=== PATIENT | female | born 1965 | race African-American/Black ===

== ENCOUNTER 2020-08-06 21:16 | Emergency (ER) | payer OTHER ==
[~2020-08-06] VITALS: Ht 170.2 cm; Wt 88.5 kg
[2020-08-06 21:48] VITALS: BP 111/56
--- NOTE | 2020-08-06 21:50 | NUR ---
w/c assist to bed 04.
--- NOTE | 2020-08-06 21:57 | NUR ---
54 y/o female c/o periorbital edema x 2 days. Bug bite on L eye and bilat legs. c/o itchyness. pt states 8/10 generalized pain. no redness or swelling noted. pmhx: CVA x 4, HTN, DM, Rt calf amputation allx: morphine
--- NOTE | 2020-08-06 22:46 | NUR ---
ERMD AT BEDSIDE EVALUATING PT
--- NOTE | 2020-08-06 23:15 | NUR ---
pt refused bendryl 25 mg. ermd notified.
[2020-08-06 23:25] VITALS: BP 111/56
--- NOTE | 2020-08-06 23:25 | NUR ---
Patient discharged with v/s stable. Written and verbal after care instructions given and explained. Patient alert, oriented and verbalized understanding of instructions. Wheel Chair Assisted with to lobby. All questions addressed prior to discharge. ID band removed. Patient advised to follow up with PMD. Rx of Benadryl given. Patient educated on indication of medication including possible reaction and side effects. Opportunity to ask questions provided and answered.
== END 2020-08-06 23:25 | disposition home or self-care (01) ==
LOC: MED 21:16
DX: S40.861A Insect bite (nonvenomous) of right upper arm, initial encounter (principal); E11.9 Type 2 diabetes mellitus without complications; I10 Essential (primary) hypertension; I63.9 Cerebral infarction, unspecified; Z88.6 Allergy status to analgesic agent; W57.XXXA Bitten or stung by nonvenomous insect and other nonvenomous arthropods, initial encounter; Y93.89 Activity, other specified; Y92.89 Other specified places as the place of occurrence of the external cause; Y99.8 Other external cause status
CPT/HCPCS: 99282

== ENCOUNTER 2020-12-09 22:02 | Emergency (ER) | payer OTHER ==
[~2020-12-09] VITALS: Ht 165.1 cm; Wt 90.7 kg
[2020-12-09 22:34] VITALS: BP 109/68
--- NOTE | 2020-12-09 22:38 | NUR ---
TO LOBBY A/W BED VIA AMBULATORY Addendum: 12/09/20 at 2246 by [facility] VIA WHEELCHAIR
[2020-12-09 23:15] LABS: APPEARANCE,URINE CLEAR (CLEAR); BILIRUBIN,URINE NEGATIVE (NEGATIVE); BLOOD, URINE TRACE-I (NEGATIVE); COLOR,URINE YELLOW (YELLOW); LEUKOCYTE ESTERASE ,URINE NEGATIVE (NEGATIVE); NITRITE, URINE NEGATIVE (NEGATIVE); UGLUCOSE 3+ (NEGATIVE)
[2020-12-09 23:38] LABS: RBC,URINE 0-5 /HPF (0-5); WBC,URINE 0 /HPF (0-5)
== END 2020-12-09 23:19 | disposition left against medical advice (07) ==
LOC: MED 22:02
DX: R10.30 Lower abdominal pain, unspecified (principal); Z53.21 Procedure and treatment not carried out due to patient leaving prior to being seen by health care provider
CPT/HCPCS: 81001; 81025; 99281

== ENCOUNTER 2023-10-23 21:20 | Emergency (ER) | payer OTHER ==
[~2023-10-23] VITALS: Ht 165.1 cm; Wt 68.0 kg
[2023-10-23 21:37] VITALS: BP 123/73; PULSE 92; RESP 15; TEMP 97.4; O2SAT 99
== END 2023-10-23 23:10 | disposition left against medical advice (07) ==
LOC: MED 21:20
DX: R51.9 Headache, unspecified (principal); Z53.21 Procedure and treatment not carried out due to patient leaving prior to being seen by health care provider
CPT/HCPCS: 99281